=== PATIENT | male | born 1950 | race Hispanic/Latino ===

== ENCOUNTER → 2023-12-17 | Outpatient (REF) | payer OTHER | LOC: CT 11:31 | PROVIDERS: ATTEND Urology | DX: K40.90 Unilateral inguinal hernia, without obstruction or gangrene, not specified as recurrent (principal) | CPT/HCPCS: 74176 ==

== ENCOUNTER → 2025-01-18 | Outpatient (REF) | payer OTHER | LOC: US 11:08 | PROVIDERS: ATTEND Urology | DX: N50.89 Other specified disorders of the male genital organs (principal) | CPT/HCPCS: 76870; 93976 ==

== ENCOUNTER → 2025-02-12 | Outpatient (REF) | payer OTHER ==
[~2025-02-12] MED LIST: B COMPLEX1 EACH PO; IBUPROFEN400 MG PO; KLONOPIN0.5 MG PO; LEVOTHYROXINE75 MCG PO; METOPROLOL SUCC25 MG PO; OXCARBAZEPINE300 MG PO; TRAZODONE HCL50 MG PO; VIT B12 PO; VITAMIN B-1100 M1 PO; [UNRECOGNIZED DRUG - OTHER] PO
[2025-02-12 08:54] LABS: BASOPHILS % 0.3 % (0.0-1.0); EOSINOPHILS % 0.7 % (0.0-6.0); LYMPHOCYTES % 51.3 % (18.0-39.1); MONOCYTES % 5.5 % (4.4-11.3); NEUTROPHILS % 42.0 % (38.7-80.0); RED CELL DISTRIBUTION WIDTH 14.3 % (11.7-14.4)
== END ==
LOC: LAB 08:00 → EDSTATUS 02-22 11:00
PROVIDERS: ATTEND Internal Medicine Gastroenterology
DX: Z01.818 Encounter for other preprocedural examination (principal); I10 Essential (primary) hypertension; Z68.30 Body mass index [BMI] 30.0-30.9, adult; Z71.3 Dietary counseling and surveillance; Z78.9 Other specified health status; Z86.0100 Personal history of colon polyps, unspecified
CPT/HCPCS: 36415; 85025; 93005